=== PATIENT | male | born 1940 | race Caucasian/White ===

== ENCOUNTER → 2016-07-18 | Outpatient (CLI) | payer MEDICARE, OTHER | END | disposition home or self-care (01) | LOC: HKI 09:15 | PROVIDERS: ATTEND Orthopaedic Surgery | DX: T84.84XD Pain due to internal orthopedic prosthetic devices, implants and grafts, subsequent encounter (principal); M25.562 Pain in left knee; Z96.652 Presence of left artificial knee joint | CPT/HCPCS: G0463 ==

== ENCOUNTER → 2016-07-20 | Outpatient (CLI) | payer MEDICARE, OTHER ==
--- NOTE | 2016-07-20 16:42 | RADRPT ---
PROCEDURE: Three-phase bone scan study CLINICAL INDICATION: 75 -year-old patient with left knee replacement, complaining of left knee panchito n. TECHNIQUE: Following the intravenous injection of 24.9 mCi of Tc-99m MDP, a three-phase bone scan study of the knees bilaterally was obtained. COMPARISON: No prior bone scan studies. FINDINGS: Blood flow phase of the study demonstrates marked asymmetrically increased activity surrounding the proximal aspect of the left knee joint. Blood pooling images reveal marked asymmetrically increased blood pooling activity predominately in the medial aspect of the proximal left knee joint. Delayed images of both knees demonstrate evidence of a left knee replacement a focus of intense upta ke in the proximal portion of the left knee joint medially. Otherwise, there is mild nonspecific ac tivity surrounding the remainder of the prosthesis. IMPRESSION: 1. Marked asymmetrically increased blood flow and blood pooling activity in the proximal aspect of the left knee joint along with a focus of intense tracer activity on the delayed images in the media l SPECT of the proximal left knee joint. The finding are nonspecific, may be seen in association wi th infectious process in the appropriate clinical setting. 2. No other abnormal areas of increased uptake in the obtained limited views of both knees. RPTAT: HH .Candice Owens MD, MD Date Time Electronically viewed and signed by .Candice Owens MD, on 07/20/2016 16:41 .L/
== END | disposition home or self-care (01) ==
LOC: NUC 10:26
PROVIDERS: ATTEND Orthopaedic Surgery
DX: M25.562 Pain in left knee (principal); Z96.652 Presence of left artificial knee joint
CPT/HCPCS: 78315; A9503

== ENCOUNTER → 2016-09-24 | Outpatient (CLI) | payer MEDICARE, OTHER ==
--- NOTE | 2016-09-24 11:50 | RADRPT ---
PROCEDURE: Left knee radiographs. CLINICAL INDICATION: Left knee pain. Postop. TECHNIQUE: Three views. Weight bearing. Frontal, lateral, and patellar view. COMPARISON: 01/12/2013. FINDINGS: There is no fracture or dislocation. There are vascular calcifications consistent with atherosclerosis. There is a total left knee arthroplasty which appears satisfactory. There is no lytic or blastic lesion. There is no joint effusion. IMPRESSION: 1. Satisfactory postoperative appearance of the left knee. 2. Atherosclerosis RPTAT: QQ .Michael De Los Santos MD, MD Date Time Electronically viewed and signed by .Michael De Los Santos MD, MD on 09/24/2016 11:49 .R/
== END | disposition home or self-care (01) ==
LOC: HKI 09:09
PROVIDERS: ATTEND Orthopaedic Surgery
DX: Z47.89 Encounter for other orthopedic aftercare (principal); S80.02XA Contusion of left knee, initial encounter; Z96.652 Presence of left artificial knee joint
CPT/HCPCS: 73562; G0463